=== PATIENT | male | born 1985 | race Caucasian/White ===

== ENCOUNTER 2025-08-31 11:54 | Outpatient (CLI) | payer OTHER, SELFPAY | END 2025-08-31 11:55 | disposition home or self-care (01) | LOC: AMB 09-01 14:06 | PROVIDERS: Visit Provider Student in an Organized Health Care Education/Training Program | DX: R56.9 Unspecified convulsions (principal) | CPT/HCPCS: A0425; A0427 ==

== ENCOUNTER 2025-08-31 12:32 | Emergency (ER) | payer MEDICAID, SELFPAY ==
[2025-08-31] VITALS (19 sets, daily range): BP systolic 149–190; BP diastolic 84–113; PULSE 99–185; RESP 16–94; TEMP 36.5; O2SAT 86–99; BMI 122.4
[2025-08-31] MEDS: diazePAM 5 MG/ML inj 10 MG IV (12:39)
--- NOTE | 2025-08-31 12:46 | CRLHL7_ITS ---
For Patients: As a result of the Century Cures Act, medical imaging exams and procedure reports are released immediately into your electronic medical record. You may view this report before your referring provider. If you have questions, please contact your health care provider. INDICATION: Chest pain. TECHNIQUE: Chest 1 views. COMPARISON: None. FINDINGS: Cardiovascular and mediastinum: Heart size and vasculature are normal in caliber and appearance. Endotracheal tube with tip approximately 4.7 centimeters from the saadia. Lungs and pleural spaces: Lungs are clear. No sign of infiltrate or mass. No sign of pleural effusion. No pneumothorax. Bones and soft tissues: No significant findings. IMPRESSION: No acute or significant findings. Dictated by Ike Aranda MD @ 08/31/2025 1:25:20 PM (Electronically Signed)
[2025-08-31] MEDS: LEVETIRACETAM 1,000 mg/100 ml INFUSION 1000 MG IVPB (12:48)
[2025-08-31 12:54] LABS: PCO2 VBG 30 mmHG (40-50); PO2 VBG 136.0 mmHG (25-47)
[2025-08-31] MEDS: ETOMIDATE 2 MG/ML inj 20 MG IVP (12:54)
[2025-08-31] MEDS: ROCURONIUM BROMIDE 10 MG/ML inj 70 MG IV (12:54)
[2025-08-31 12:56] LABS: Hematocrit* 51.2 % (37.0-53.0); Hemoglobin* 15.8 gm/dL (13.5-17.5); Immature Granulocytes Pct Auto 6.7 %; Lactate* > 24.0 mmol/L (0.5-1.9); Mean Corpuscular HGB Conc 31 gm/dL (32-36); Mean Corpuscular Hemoglobin 32 pg (26-34); Mean Corpuscular Volume 103 fL (80-100); RDW Coefficient of Variation % 12.0 % (11.5-15.5); Red Blood Count* 4.97 m/uL (4.30-5.90); White Blood Count* 20.58 K/uL (4.50-11.00)
[2025-08-31 12:57] LABS: pH VBG < 6.818 (7.32-7.43)
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
[2025-08-31] MEDS: SODIUM BICARBONATE 50 MEQ/50ML SYRINGE IVP (12:59)
[2025-08-31] MEDS: PROPOFOL 10 MG/ML INJ 100 MG IVP (13:00)
[2025-08-31 13:02] LABS: Immature Granulocytes Abs Auto 1.40 K/uL (0.00-0.30); Lymphocytes Absolute Auto 7.20 K/uL (0.90-2.90); Slide Review Reflex Yes
[2025-08-31] MEDS: propofoL 1,000 MG/100 ML ML 10.5 MG IVPB (13:02)
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
[2025-08-31 13:10] LABS: Troponin, Point-of-Care* 0.03 ng/ml (0.01-0.04)
[2025-08-31 13:17] LABS: Albumin* 5.1 g/dL (3.3-5.0); Chloride* 105 mmol/L (96-114); Potassium* 3.6 mmol/L (3.6-5.1); Sodium* 147 mmol/L (135-149)
[2025-08-31 13:19] LABS: Blood Urea Nitrogen* 11 mg/dL (5-24); Creatinine* 1.5 mg/dL (0.5-1.5); Estimated Glomerular Filt Rate 60 ml/min
[2025-08-31 13:20] LABS: Alanine Aminotransferase* 75 U/L (4-50); Alkaline Phosphatase* 67 U/L (40-150); Aspartate Amino Transferase* 106 U/L (12-35); Bilirubin Total* 0.8 mg/dL (0.1-1.5); Calcium* 10.6 mg/dL (8.4-10.6); Glucose* 207 mg/dL (60-115); Total Protein* 7.9 g/dL (6.0-8.3)
[2025-08-31 13:22] LABS: Slide Review Acceptable Review (Acceptable)
[2025-08-31 13:24] LABS: D Dimer Quantitative* 2.73 ug/ml (0.00-0.50)
--- NOTE | 2025-08-31 13:28 | CRLHL7_ITS ---
For Patients: As a result of the Century Cures Act, medical imaging exams and procedure reports are released immediately into your electronic medical record. You may view this report before your referring provider. If you have questions, please contact your health care provider. Indication: NG tube confirmation Technique: AP view of the chest. Comparison: Same day chest radiograph. Findings: Endotracheal tube with tip 5.0 centimeter above the level of the saadia. Enteric tube with tip near the gastroesophageal junction. Defibrillator pads overlie the patient. Low lung volumes. Normal cardiomediastinal silhouette. No focal consolidation, pleural effusions, or visualized pneumothorax. Impression: 1. Endotracheal tube with tip 5.0 centimeter above the level of the saadia. 2. Enteric tube with tip near the gastroesophageal junction. Consider advancement. Dictated by Ward Marsh MD @ 08/31/2025 1:42:49 PM (Electronically Signed)
[2025-08-31 13:33] LABS: Appearance Urine Slightly Cloudy (Clear)
[2025-08-31 13:35] LABS: Glucose, Point-of-Care* 208 mg/dl (60-115)
[2025-08-31 13:35] LABS: Anion Gap 37 mEq/L (7-15); NT Pro B Type NatriureticPept* 117 pg/mL (See Note)
[2025-08-31 13:36] LABS: Carbon Dioxide* < 5 mmol/L (20-32)
== END 2025-08-31 13:50 | disposition short-term general hospital (02) ==
PROVIDERS: Emergency Provider Student in an Organized Health Care Education/Training Program
DX: G40.911 Epilepsy, unspecified, intractable, with status epilepticus (principal); R09.02 Hypoxemia
CPT/HCPCS: 31500; 36415; 70450; 71045; 80053; 81001; 82803; 82947; 83605; 83880; 84484; 85025; 85379; 87086; 93005; 96365; 96366; 96375; 99285; 99291; G0390; J1953; J2704; J3360; J7030

== ENCOUNTER 2025-08-31 13:20 | Outpatient (CLI) | payer OTHER, SELFPAY | END 2025-08-31 13:21 | disposition home or self-care (01) | LOC: AMB 09-07 08:48 | PROVIDERS: Visit Provider Student in an Organized Health Care Education/Training Program | DX: G40.901 Epilepsy, unspecified, not intractable, with status epilepticus (principal); R09.02 Hypoxemia | CPT/HCPCS: A0425; A0434 ==